=== PATIENT | female | born 1955 | race African-American/Black ===

== ENCOUNTER 2022-12-16 21:39 | Emergency (ER) | payer OTHER, MEDICARE ==
[2022-12-16] MEDS ORDERED: Acetaminophen 500 MG TAB ONE (23:01)
== END 2022-12-17 00:28 | disposition home or self-care (01) ==
LOC: MADERS 21:39
DX: S16.1XXA Strain of muscle, fascia and tendon at neck level, initial encounter (principal); E11.9 Type 2 diabetes mellitus without complications; J45.909 Unspecified asthma, uncomplicated; V89.2XXA Person injured in unspecified motor-vehicle accident, traffic, initial encounter; Z79.4 Long term (current) use of insulin; Z79.899 Other long term (current) drug therapy
CPT/HCPCS: 70450; 72125